=== PATIENT | female | born 1965 | race Caucasian/White ===

== ENCOUNTER → 2018-03-22 | Outpatient (CLI) | payer BC ==
[~2018-03-22] MED LIST: PROZAC40 MG PO; TOPAMAX50 MG PO
== END ==
LOC: M.RAD 09:58
DX: Z12.31 Encounter for screening mammogram for malignant neoplasm of breast (principal)

== ENCOUNTER → 2019-11-02 | Outpatient (CLI) | payer OTHER | LOC: M.RAD 10:27 | PROVIDERS: ATTEND Family Medicine | DX: Z12.31 Encounter for screening mammogram for malignant neoplasm of breast (principal) ==